=== PATIENT | male | born 1975 | race Caucasian/White ===

== ENCOUNTER 2018-09-09 08:00 | Emergency (ER) | payer BC ==
[~2018-09-09] VITALS: Ht 185.4 cm; Wt 100.0 kg
[2018-09-09] MEDS ORDERED: ZOLO25TA PO (08:05)
[2018-09-09] MEDS ORDERED: CRES5TAB PO (08:05)
[2018-09-09] MEDS ORDERED: METO1TAB7 PO (08:05)
[2018-09-09] MEDS ORDERED: KETOROLAC 30 MG/ML VIAL (J1885) IV ONE (08:30)
[2018-09-09] MEDS ORDERED: NS 1,000 ML IV ONE (08:30)
[2018-09-09] MEDS ORDERED: ONDANSETRON 4MG/2ML VIAL (J2405) IV ONE (08:30)
[2018-09-09 08:57] LABS: BASO % 0.4 % (0.0-1.0); EOS # 0.4 10^3/uL (0.0-0.50); EOS % 3.6 % (0.0-3.0); LYMPH # 1.8 10^3/uL (1.5-4.5); LYMPH % 17.4 % (24.0-44.0); MEAN CORPUSCULAR HEMOGLOBIN 31.4 pg (27.0-33.0); MEAN CORPUSCULAR HGB CONC 35.2 g/dl (32.0-36.5); MEAN CORPUSCULAR VOLUME 89.3 fl (80.0-96.0); MONO # 0.6 10^3/uL (0.0-0.8); NEUTROPHILS # 7.4 10^3/uL (1.8-7.7); NEUTROPHILS % 72.3 % (36.0-66.0); PLATELET COUNT, AUTOMATED 179 10^3/uL (150-450); WHITE BLOOD COUNT 10.3 10^3/uL (4.0-10.0)
[2018-09-09 09:04] LABS: HEMOGLOBIN 17.9 g/dl (13.5-17.5)
[2018-09-09 09:05] LABS: HEMATOCRIT 50.9 % (42.0-52.0)
[2018-09-09 09:28] LABS: ALBUMIN 4.3 GM/DL (3.2-5.2); BILIRUBIN,DIRECT 0.2 MG/DL (0.0-0.2); BILIRUBIN,TOTAL 0.6 MG/DL (0.2-1.0); TOTAL PROTEIN 7.7 GM/DL (6.4-8.2)
[2018-09-09] MEDS ORDERED: TAMS1CAP17 PO (10:27)
[2018-09-09] MEDS ORDERED: ENDO5TAB PO (10:27)
[2018-09-09 10:43] VITALS: BP 156/96
--- NOTE | 2018-09-09 15:01 | REP ---
Clinical: Left flank pain. Technique: Axial noncontrast images from the lung bases to the pubic symphysis with coronal and sagittal re-formations. Findings: Mild left-sided acute obstructive uropathy with hydronephrosis and proximal hydroureter secondary to a 3 mm obstructing calculus in the proximal/mid left ureter (images 81 - 82). Associated mild perinephric and periureteral stranding is appreciated. No further urinary tract calcifications are identified and no further urinary tract pathology is appreciated. Liver, spleen, pancreas, gallbladder, and bilateral adrenal glands are normal. The enteric system is without obstruction or acute inflammatory process. Pelvis demonstrates normal bladder and age appropriate prostate/seminal vesicles. No ascites. No free air. No adenopathy. Abdominal aorta without aneurysm. Musculoskeletal structures intact. Surgical clip noted in the right criselda scrotum. Impression: 1. Mild left-sided acute obstructive uropathy with a 3 mm calculus in the proximal/mid left ureter. No further urinary tract calcifications or urinary tract pathology appreciated. Electronically Signed by Malahci Johnson MD 09/09/2018 08:51 A
== END 2018-09-09 10:45 | disposition home or self-care (01) ==
LOC: M ED 08:00
DX: N20.0 Calculus of kidney (principal); N20.1 Calculus of ureter; I10 Essential (primary) hypertension; E78.5 Hyperlipidemia, unspecified; K21.9 Gastro-esophageal reflux disease without esophagitis; F33.9 Major depressive disorder, recurrent, unspecified; F41.9 Anxiety disorder, unspecified; Z79.899 Other long term (current) drug therapy; F17.210 Nicotine dependence, cigarettes, uncomplicated
CPT/HCPCS: 74176; 80047; 80076; 81001; 83690; 85025; 96361; 96374; 96375; 99284; J1885; J2405